=== PATIENT | female | born 1970 | race African-American/Black ===

== ENCOUNTER 2018-03-26 21:12 | Emergency (ER) | payer OTHER ==
[~2018-03-26] VITALS: Ht 160 cm; Wt 74.6 kg
[2018-03-26 21:53] LABS: HEMATOCRIT 36.8 % (36.0-46.0); HEMOGLOBIN 12.1 G/DL (11.9-15.5); MCH 28.9 PG (29.0-34.0); MCHC 32.9 G/DL (30.0-36.0); PLATELET COUNT 317 K/uL (156-360); RBC DIS.WIDTH-CV 14.6 % (11.8-14.6); RBC DIS.WIDTH-SD 47.4 % (39-53); RED BLOOD COUNT 4.18 M/uL (3.80-5.20); WHITE BLOOD COUNT 10.3 K/uL (4.1-10.2)
[2018-03-26 22:12] LABS: CHLORIDE 105 mEq/L (99-109); SODIUM 141 mEq/L (136-147)
[2018-03-26 22:14] LABS: GLUCOSE 168 mg/dL (70-99)
[2018-03-26 22:18] LABS: CREATININE 0.8 mg/dL (0.6-1.3)
[2018-03-26 22:19] LABS: GFR ESTIMATE (CALCULATED) > 59 mL/min/; UREA NITROGEN (BUN) 13 mg/dL (9-23)
[2018-03-26 22:27] LABS: QUANTITATIVE HCG < 4.0 MIU/ML
[2018-03-26 22:48] LABS: ALBUMIN 4.4 g/dL (3.2-4.8)
[2018-03-26 22:51] LABS: TOTAL PROTEIN 7.6 g/dL (6.4-8.3)
[2018-03-26 22:53] LABS: TOTAL BILIRUBIN 0.3 mg/dL (0.0-1.0)
[2018-03-26 22:54] LABS: ALKALINE PHOSPHATASE 101 IU/L (3-129)
[2018-03-26 22:56] LABS: AST (GOT) 12 IU/L (2-34); DIRECT BILIRUBIN 0.2 mg/dL (0.0-0.3)
[2018-03-26 22:57] VITALS: BP 133/86
[2018-03-26 22:57] LABS: ALT (GPT) 11 IU/L (3-49)
== END 2018-03-26 22:59 | disposition home or self-care (01) ==
LOC: EME 21:12
DX: K92.2 Gastrointestinal hemorrhage, unspecified (principal); J45.909 Unspecified asthma, uncomplicated; Z88.5 Allergy status to narcotic agent
CPT/HCPCS: 80048; 80076; 84702; 85027; 99281; 99283